=== PATIENT | female | born 1990 | race African-American/Black ===

== ENCOUNTER 2020-08-25 19:43 | Emergency (ER) | payer OTHER ==
[~2020-08-25] VITALS: Ht 167.6 cm; Wt 95.3 kg
[2020-08-25] MEDS ORDERED: TRAMADOL HCL 50 MG TAB ONE (22:50)
[2020-08-25] MEDS ORDERED: IBUPROFEN 400 MG TAB ONE (22:57)
== END 2020-08-25 23:15 | disposition home or self-care (01) ==
LOC: FSED 20:35
DX: S00.83XA Contusion of other part of head, initial encounter (principal); S30.1XXA Contusion of abdominal wall, initial encounter; M79.641 Pain in right hand; M25.512 Pain in left shoulder; V43.52XA Car driver injured in collision with other type car in traffic accident, initial encounter; Y92.488 Other paved roadways as the place of occurrence of the external cause
CPT/HCPCS: 70486; 74176; 99283